=== PATIENT | female | born 2000 | race Two or more races ===

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

== ENCOUNTER 2019-10-25 23:38 | Emergency (ER) | payer MEDICAID ==
[~2019-10-25] VITALS: Ht 144.8 cm; Wt 66.7 kg
[2019-10-25 23:46] VITALS: BP 131/81
[2019-10-26] MEDS ORDERED: KETOROLAC TROMETHAMINE INJ 60 MG/2 ML VIAL IM ONE ×2 (00:17→00:30)
--- NOTE | 2019-10-26 00:21 | NUR ---
URINE COLLECTED AND SENT TO LAB
--- NOTE | 2019-10-26 01:30 | NUR ---
CALLED ARTIE FOR REPORT
--- NOTE | 2019-10-26 02:01 | NUR ---
Patient discharged to home in stable condition. Written and verbal after care instructions given. Patient verbalizes understanding of instruction.
== END 2019-10-26 02:02 | disposition home or self-care (01) ==
LOC: ER 23:41
DX: M25.512 Pain in left shoulder (principal); M25.522 Pain in left elbow; W06.XXXA Fall from bed, initial encounter; Y93.89 Activity, other specified; Y92.89 Other specified places as the place of occurrence of the external cause; Y99.8 Other external cause status
CPT/HCPCS: 73030; 73080; 84703; 96372; 99284; J1885

== ENCOUNTER 2022-05-23 23:33 | Emergency (ER) | payer MEDICAID, OTHER ==
[~2022-05-23] VITALS: Ht 139.7 cm; Wt 68.0 kg
--- NOTE | 2022-05-24 | NUR ---
BIBS FOR C/O PAINFUL LUMP ON STERNAL AREA RADIATING TO THE BACK. PATIENT IS FAROESE SPEAKING. PAIN SCALE OF 7/10. PLACED COMFORTABLY IN BED. VITALS CHECKED
--- NOTE | 2022-05-24 00:05 | NUR ---
SEEN BY DR KIRBY AT BEDSIDE
[2022-05-24] MEDS ORDERED: ASPIRIN 81 MG TAB.CHEW PO ONE (00:30)
[2022-05-24] MEDS ORDERED: KETOROLAC TROMETHAMINE INJ 30 MG/ML VIAL IV ONE (00:30)
[2022-05-24] MEDS ORDERED: ASPIRIN EC 81 MG TABLET.DR PO ONE (00:35)
[2022-05-24] MEDS ORDERED: KETOROLAC TROMETHAMINE INJ 60 MG/2 ML VIAL IM ONE (00:36)
--- NOTE | 2022-05-24 00:45 | NUR ---
IV CANNULA G18 INSERTED ON LEFT AC. BLOOD DRAWN AND SENT TO LAB
[2022-05-24 01:00] LABS: BASOPHILS % (AUTO) 0.5 % (0.0-2.0); EOSINOPHILS % (AUTO) 2.8 % (0.0-6.0); HEMATOCRIT 37 % (33-45); HEMOGLOBIN 12.2 g/dL (11.5-14.8); LYMPHOCYTES # (AUTO) 2.3 K/uL (0.8-4.8); LYMPHOCYTES % (AUTO) 34.1 % (20.0-44.0); MEAN CORPUSCULAR HGB CONC 34 g/dl (31.0-36.0); MEAN CORPUSCULAR VOLUME 89 fL (82-100); MONOCYTES # (AUTO) 0.5 K/uL (0.1-1.30); MONOCYTES % (AUTO) 6.8 % (2.0-12.0); NEUTROPHILS # (AUTO) 3.8 K/uL (1.8-8.9); NEUTROPHILS % (AUTO) 55.8 % (43.0-81.0); PLATELET COUNT (AUTO) 245 K/uL (150-450); RED BLOOD CELL COUNT(AUTO) 4.08 MIL/uL (4.0-5.2); WHITE BLOOD COUNT (AUTO) 6.8 K/uL (4.3-11.0)
[2022-05-24 01:14] LABS: ALANINE AMINOTRANSFERASE 70 U/L (12-78); ALBUMIN 3.5 g/dL (3.4-5.0); ALKALINE PHOSPHATASE 77 U/L (46-116); ASPARTATE AMINOTRANSFERASE 20 U/L (15-37); BILIRUBIN,DIRECT 0.1 mg/dL (0.0-0.2); BILIRUBIN,TOTAL 0.2 mg/dL (0.2-1.0); CALCIUM, SERUM 9.2 mg/dL (8.5-10.1); CARBON DIOXIDE 28 mmol/L (21-32); CHLORIDE 103 mmol/L (98-107); CREATININE 0.7 mg/dL (0.6-1.3); GLUCOSE 105 mg/dL (74-106); POTASSIUM 3.3 mmol/L (3.5-5.1); SODIUM SERUM 138 mmol/L (136-145); TOTAL PROTEIN, SERUM 7.4 g/dL (6.4-8.2); UREA NITROGEN, BLOOD 17 mg/dL (7-18)
[2022-05-24] MEDS ORDERED: IBUP-1953 PO (03:10)
--- NOTE | 2022-05-24 03:42 | NUR ---
IV CANNULA REMOVED
--- NOTE | 2022-05-24 03:42 | NUR ---
Patient discharged to home in stable condition. Written and verbal after care instructions given. Patient verbalizes understanding of instruction.
[2022-05-24 03:43] VITALS: BP 117/66
== END 2022-05-24 04:27 | disposition home or self-care (01) ==
LOC: ER 23:52
DX: R07.89 Other chest pain (principal); R22.2 Localized swelling, mass and lump, trunk; M94.0 Chondrocostal junction syndrome [Tietze]; Z79.1 Long term (current) use of non-steroidal anti-inflammatories (NSAID)
CPT/HCPCS: 99285; 96374; 71045; 93005; 85025; 80048; 80076; 36415; 84484 ×2; J1885